=== PATIENT | female | born 1935 | race Caucasian/White ===

== ENCOUNTER 2016-10-08 10:00 | Emergency (ER) | payer OTHER ==
[2016-10-08 10:17] VITALS: BP 142/66; PULSE 85; RESP 18; TEMP 98; O2SAT 95
--- NOTE | 2016-10-08 10:25 | UCPHY ---
H & P Time Seen by Provider: 10/08/16 10:07 Patient Type: Established HPI/ROS: HPI Cough, chest congestion. 80-year-old female by private vehicle. This patient complains of a dry/ nonproductive cough with chest congestion and nasal congestion ongoing for 1 week now. She reports that she had these symptoms last year and was diagnosed as bronchitis and pneumonia. She reports this feels very similar. ROS: Constitutional: No fever, no chills. No weakness. Eyes: No discharge. No changes in vision. ENT: No sore throat. As above. Respiratory: As above. No shortness of breath. Cardiac: No chest pain, no palpitations. Gastrointestinal: No abdominal pain, no vomiting, no diarrhea. Genitourinary: No hematuria. No dysuria or increased frequency with urination. Musculoskeletal: No back pain. No neck pain. No myalgias or arthralgias. Skin: No rashes. Neurological: No headache. No focal weakness or altered sensation. Past medical history: Hypertrophic cardiomyopathy, mitral valve regurgitation, pneumonia, hyperlipidemia, sleep apnea, CPAP with oxygen at night. GI bleed while being on blood thinners after knee surgery. Social history: Here by herself. Nonsmoker. Physical Exam: General Appearance: Alert, no distress. This patient is responding to questions appropriately and in full sentences. This patient appears well- hydrated and well-nourished. Eyes: Pupils equal and round no pallor or injection. No lid edema, erythema or injection. ENT, Mouth: Mucous membranes are moist. The pharyngeal tissues are unremarkable. No edema or swelling. No asymmetry suggestive of abscess. No erythema or exudates. Respiratory: There are no retractions, lungs are clear to auscultation with good air movement bilaterally. Cardiovascular: Regular rate and rhythm. Holosystolic murmur. Gastrointestinal: Abdomen is soft and nontender, no masses, bowel sounds normal. No focal tenderness at McBurney's point. No Aquino sign. Neurological: Motor sensory function is grossly intact. Cranial nerves are normal. Gait is normal. Skin: Warm and dry, no rashes. Musculoskeletal: Neck is supple and nontender. Extremities are symmetrical. All joints range without pain or impingement. Psychiatric: No agitation. No depression. Database: Influenza-negative. EKG: Imaging: Chest x-ray PA and lateral; the cardiac mediastinal silhouette is unremarkable. No evidence of infiltrate or pneumothorax. Bronchitis. No other acute cardiopulmonary disease process noted. Interpreted by me. Procedures: Emergency department course: Patient sent for a chest x-ray from triage. Flu swab obtained. 10:45 a.m., patient re-evaluated. Awaiting flu swab result. Discussed results of x-ray with patient. Given her age and comorbidities all start the patient on azithromycin at urgent care. She was given 500 mg orally. 11:00 a.m., patient re-evaluated. Resting comfortably at this time. Results of influenza swab discussed with her. Her presentation is not consistent with classic influenza. She also had the flu vaccine earlier last year. I will treat her for bronchitis. She will receive a prescription for azithromycin as well as Tesyobany Whitneye. I discussed the importance of close follow-up. She feels comfortable going home. Return to Urgent Care precautions reviewed. All of her questions were answered. She was discharged in good condition. Differential Diagnosis: The differential diagnosis on this patient includes but is not limited to bronchitis, pneumonia, viral upper respiratory infection. This represents a partial list of diagnoses considered. These considerations are based on history , physical exam, past history, reassessment and diagnostic testing. Smoking Status: Never smoked Constitutional: Initial Vital Signs Temperature (C) 36.6 C 10/08/16 10:16 Heart Rate 85 10/08/16 10:16 Respiratory Rate 18 10/08/16 10:16 Blood Pressure 142/66 H 10/08/16 10:16 O2 Sat (%) 95 10/08/16 10:16 O2 Delivery Mode Room Air Allergies/Adverse Reactions: Sulfa (Sulfonamide Antibiotics) [Sulfa(Sulfonamide Antibiotics)] Allergy ( Intermediate, Verified 01/25/16 10:05) Rash Home Medications: Medication Instructions Recorded CALCIUM 01/25/16 CO Q-10 01/25/16 HYOSCYAMINE SULFATE [LEVSIN-SL] 0.125 mg SL Q4-6PRN PRN #20 01/25/16 tab.subl IRON 01/25/16 Metoprolol Tartrate 01/25/16 Multisenior Vitamin 01/25/16 Probiotic 01/25/16 Vitamin B12 01/25/16 Vitamin C 01/25/16 Vitamin D3 01/25/16 Zocor 01/25/16 Azithromycin [Zithromax] 250 mg PO DAILY #6 tab 10/08/16 Azithromycin [Zithromax] 250 mg PO DAILY #6 tab 10/08/16 Benzonatate [Tessalon Pearles] 100 mg PO TID #12 cap 10/08/16 Medical Decision Making - Data Points Laboratory Results: 10/08/16 10:35 Influenza Typ A,B (DFA) NEGATIVE FOR FLU (NEGATIVE) Medications Given: Discontinued Medications Azithromycin (Zithromax) 500 mg PO EDNOW ONE PRN Reason: Protocol Stop: 10/08/16 10:44 Last Admin: 10/08/16 10:57 Dose: 500 mg Departure - Departure Disposition: Home, Routine, Self-Care Clinical Impression: Bronchitis Condition: Good Instructions: Acute Bronchitis (ED) Additional Instructions: Read and follow provided instructions. Follow-up with your primary care physician in 1-2 days for re-evaluation without fail. Take medication as prescribed through entire course of treatment. Return to the emergency department for worsening cough, fever, difficulty breathing or other serious concerns. Referrals: Jyoti Aviles MD [Primary Care Provider] - As per Instructions Prescriptions: Benzonatate [Tessalon Pearles] 100 mg PO TID #12 cap Azithromycin [Zithromax] 250 mg PO DAILY #6 tab Azithromycin [Zithromax] 250 mg PO DAILY #6 tab - PQRS PQRS Measurement: 134: Depression screening and followup, PRIME MD-PHQ2 (12 years and older) Over the last 2 weeks, how often have you been bothered by any of the following problems? 1. Feeling down, depressed, or hopeless? 2. Little interest or pleasure in doing things? Answered no to both questions. 130: Documentation of medications. Reviewed all patient medications, doses, route and frequency. 226: Do you smoke? No. 47: 65 and older: Advanced care planning. Patient designates surrogate decision maker as family. 51: 18 years old and older with diagnosis of COPD, spirometry performance. NA 52: 18 years old and older with COPD and symptoms of COPD or FEV1<60% predicted prescribed a B Agonist. NA
--- NOTE | 2016-10-08 10:28 | DX ---
Chest, PA and Lateral History: Cough and congestion Comparison: 10/30/2014 Findings: There is chronic or recurrent perihilar bronchial wall thickening. Mildly prominent lung vo lumes are stable. Lungs are clear, without infiltrate or consolidation. Heart size is normal. There i s atherosclerotic calcification of the proximal brachiocephalic vessels. There is no adenopathy or ma ss lesion. There is no pleural effusion . A thoracic kyphosis and degenerative changes in the midthor acic spine are stable. There are no significant compression abnormalities.. Impression: No pneumonia. Suspect airways disease.
[2016-10-08] MEDS ORDERED: AZITHROMYCIN 250 MG TAB PO ONE (10:43)
== END 2016-10-08 13:00 | disposition home or self-care (01) ==
LOC: CED 10:00
DX: J40 Bronchitis, not specified as acute or chronic (principal); Z88.2 Allergy status to sulfonamides
CPT/HCPCS: 71020; G0463; 87400-PO; 99214-PO

== ENCOUNTER → 2017-09-03 | Outpatient (CLI) | payer OTHER | LOC: SBRMNEURO 23:07 | PROVIDERS: ATTEND Psychiatry & Neurology Sleep Medicine | DX: G47.33 Obstructive sleep apnea (adult) (pediatric) (principal) ==

== ENCOUNTER → 2017-12-07 | Outpatient (CLI) | payer OTHER | LOC: BMCLAB 13:34 | PROVIDERS: ATTEND Internal Medicine | DX: R91.8 Other nonspecific abnormal finding of lung field (principal) | CPT/HCPCS: 82607-90 ==

== ENCOUNTER 2018-03-24 06:03 | Inpatient (IN) | payer OTHER ==
[2018-03-24] MEDS ORDERED: HYDROmorphONE/DILAUDID 2 MG/ML INJ IVP ONE (06:17)
[2018-03-24] MEDS ORDERED: NS 1,000 ML IV ONE (06:17)
[2018-03-24] MEDS ORDERED: PANTOPRAZOLE SODIUM 40 MG VIAL IVP ONE (06:26)
--- NOTE | 2018-03-24 06:30 | EDPHY ---
H & P Stated Complaint: black mucous stool yesterday and this am, now low back pain- sees chiroprac Time Seen by Provider: 03/24/18 06:28 HPI/ROS: HPI CHIEF COMPLAINT: Black tarry stool shortness of breath, weakness HISTORY OF PRESENT ILLNESS: Very pleasant 82-year-old female, she presents to the emergency room feeling weak, and has had black tarry stool x3. Patient states yesterday she knows black tarry stool. She states she then had another episode yesterday and then 1 last night around 3:00 a.m.. She wait till 6:00 a.m. 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 She does have a history of AFib she is on Eliquis. Also on Plavix. She has a history of GI bleed mainly from the upper GI track with AVM. She denies any chest pain, her does complain of dyspnea on exertion shortness of breath and generalized weakness. Additionally reports some abdominal bloating abdominal pain. Mainly in her left lower quadrant. Past Medical History: AFib on Eliquis, Plavix, history of cardiomyopathy, IH S as, mitral valve regurg, hypertension, pulmonary hypertension, obstructive sleep apnea, history GI bleed. Past Surgical History: No recent surgery Social History: Denies drugs alcohol tobacco. Family History: Noncontributory ROS REVIEW OF SYSTEMS: A comprehensive 10 point review of systems is otherwise negative aside from elements mentioned in the history of present illness. Exam Constitutional elderly, obese, frail, triage nursing summary reviewed, vital signs reviewed, awake/alert. Eyes normal conjunctivae and sclera, EOMI, PERRLA. HENT normal inspection, atraumatic, moist mucus membranes, no epistaxis, neck supple/ no meningismus, no raccoon eyes. Respiratory clear to auscultation bilaterally, normal breath sounds, no respiratory distress, no wheezing. Cardiovascular rate normal, regular rhythm, no murmur, no edema, distal pulses normal. Gastrointestinal mild tender palpation left lower quadrant, no rebound, no guarding, normal bowel sounds, no distension, no pulsatile mass. Genitourinary no CVA tenderness. Musculoskeletal no midline vertebral tenderness, full range of motion, no calf swelling, no tenderness of extremities, no meningismus, good pulses, neurovascularly intact. Skin pink, warm, & dry, no rash, skin atraumatic. Neurologic awake, alert and oriented x 3, AAOx3, moves all 4 extremities equally, motor intact, sensory intact, CN II-XII intact, normal cerebellar, normal vision, normal speech. Psychiatric normal mood/affect. Heme/Lymph/Immune no lymphadenopathy. Differential Diagnosis: Includes but is not limited to in a particular order: Acute diverticulitis, diverticulosis, colitis, upper GI bleed, lower GI bleed, peptic ulcer disease Medical Decision Making: Patient here in the emergency room black tarry stools and abdominal pain will proceed with IV establishment 2 IVs, type and screen, check basic blood work CBC, check H&H, IV Protonix, IV Dilaudid for pain control IV Zofran for nausea, gentle IV fluids, CT scan abdomen pelvis with IV contrast to help delineate the left lower quadrant abdominal pain on exam. Re-evaluation: EKG interpretation by me on record in [facility] system. Impression time of EKG 6:46 a.m., sinus rhythm rate of 86 no acute ischemia no ST elevation no ST depression no significant T-wave abnormalities. LVH. Given the patient has black tarry stools patient be given IV Protonix. Patient need to be admitted to the hospitalist service for evaluation Her H&H are reviewed. Blood pressure stable She is not having any active melenic dark tarry stools at this time. Patient will be admitted to the medicine service. Spoke with the hospitalist service Dr. Rivera, agrees to admit this patient for dark black tarry stool GI bleed. At time of admission 7:00 a.m. The patient is hemodynamically stable no acute distress. Stable vital signs. Not actively bleeding. Patient pending CT scan abdomen pelvis with IV contrast for left lower quadrant abdominal pain. Patient admitted to the hospitalist service Gastroenterology was consulted at 7:[address] Barraza. Requested patient remains NPO for possible scope. Source: Patient - Personal History Current Tetanus/Diphtheria Vaccine: Yes Tetanus Vaccine Date: WITHIN 10 YRS - Medical/Surgical History Hx Asthma: No Hx Chronic Respiratory Disease: No Hx Diabetes: No Hx Cardiac Disease: Yes Hx Renal Disease: No Hx Cirrhosis: No Hx Alcoholism: No Hx HIV/AIDS: No Hx Splenectomy or Spleen Trauma: No Other PMH: HYPERTROPHIC CARDIAC MYOPATHY/VALVE REGURG, PNEUMONIA, HIGH CHOLESTROL. GI BLEED AFTER KNEE SURGERY ON BLOOD THINNERS, sleep apnea, wears CPAP w/oxygen at night, HTN, Ulcer, IBS, afib - Social History Smoking Status: Never smoked Constitutional: Initial Vital Signs Temperature (C) 36.5 C 03/24/18 06:11 Heart Rate 102 H 03/24/18 06:11 Respiratory Rate 20 03/24/18 06:11 Blood Pressure 118/80 03/24/18 06:11 O2 Sat (%) 96 03/24/18 06:11 O2 Delivery Mode Room Air O2 (L/minute) 2 Allergies/Adverse Reactions: Sulfa (Sulfonamide Antibiotics) [Sulfa(Sulfonamide Antibiotics)] Allergy ( Intermediate, Verified 03/24/18 06:08) Rash nickel Allergy (Verified 03/24/18 07:52) Home Medications: Medication Instructions Recorded Ascorbic Acid [Vitamin C 500 mg 500 mg PO DAILY 01/25/16 (*)] Calcium Carbonate [Calcium] 500 mg PO DAILY 01/25/16 Cholecalciferol Vit D3 [Vitamin D3 5,000 units PO DAILY 01/25/16 (*)] Cyanocobalamin [Vitamin B12 (*)] 1,000 mcg PO DAILY 01/25/16 Multivitamins [Multivitamin (*)] 1 each PO DAILY 01/25/16 Simvastatin [Zocor] 10 mg PO HS 01/25/16 Acetamn/Diphenhydramine 500/25 2 each PO HS 03/24/18 [Tylenol PM (*)] Apixaban [Eliquis] 5 mg PO BID 03/24/18 Dabigatran Etexilate Mesyl 150 mg PO BID 03/24/18 [Pradaxa 150 MG (*)] Herbals/Supplements -Info Only 1 each PO DAILY 03/24/18 Nebivolol HCl [Bystolic] 10 mg PO DAILY 03/24/18 Pantoprazole Sodium [Protonix 40mg 40 mg PO DAILY 03/24/18 (*)] Verapamil ER [Calan SR/ER 120MG 120 mg PO HS 03/24/18 (*)] Medical Decision Making - Data Points Laboratory Results: Laboratory Results 03/25/18 11:33 03/25/18 05:23 03/24/18 06:25 Patient ABO/Rh O POSITIVE Antibody Screen NEGATIVE Crossmatch IS Only See Detail Medications Given: Acetaminophen (Tylenol) 650 mg PO Q4HRS PRN PRN Reason: Pain, Mild/Fever, Can Take PO Stop: 09/20/18 07:40 Last Admin: 03/25/18 00:50 Dose: 650 mg Acetaminophen/Diphenhydramine HCl (Tylenol Pm) 2 each PO HS SRINATH Stop: 09/20/18 20:59 Last Admin: 03/25/18 21:20 Dose: 2 each Ascorbic Acid (Vitamin C) 500 mg PO DAILY SRINATH Stop: 09/21/18 08:59 Last Admin: 03/25/18 09:08 Dose: 500 mg Calcium Carbonate (Oyster Shell Calcium) 500 mg PO DAILY SRINATH Stop: 09/21/18 08:59 Last Admin: 03/25/18 09:08 Dose: 500 mg Cholecalciferol (Vitamin D) 5,000 units PO DAILY SRINATH Stop: 09/21/18 08:59 Last Admin: 03/25/18 09:09 Dose: 5,000 units Ceftriaxone Sodium/Dextrose (Rocephin 1 Gm (Premix)) 50 mls @ 100 mls/hr IV DAILY SRINATH PRN Reason: Protocol Stop: 04/24/18 13:29 Last Admin: 03/25/18 15:26 Dose: 50 mls Multivitamins (Tab-A-Pavan) 1 each PO DAILY SRINATH Stop: 09/21/18 08:59 Last Admin: 03/25/18 09:09 Dose: 1 each Nebivolol (Bystolic) 10 mg PO DAILY [facility] Stop: 09/21/18 13:14 Last Admin: 03/25/18 13:35 Dose: 10 mg Ondansetron HCl (Zofran) 4 mg IVP Q4HRS PRN PRN Reason: Nausea/Vomiting, Can't Take PO Stop: 09/20/18 13:07 Last Admin: 03/24/18 19:56 Dose: 4 mg Oxycodone HCl (Oxycodone Ir) 5 mg PO Q4HRS PRN PRN Reason: Pain, Severe Able to Take PO Stop: 04/04/18 13:18 Last Admin: 03/25/18 15:25 Dose: 5 mg Pantoprazole Sodium (Protonix) 40 mg PO DAILY SRINATH Stop: 09/20/18 11:59 Last Admin: 03/25/18 09:18 Dose: 40 mg Pravastatin Sodium (Pravachol) 20 mg PO HS [facility] Stop: 09/20/18 20:59 Last Admin: 03/25/18 21:15 Dose: 20 mg Verapamil HCl (Calan Sr) 120 mg PO HS [facility] Stop: 09/20/18 20:59 Last Admin: 03/25/18 21:13 Dose: Not Given Vitamin B Complex (Vitamin B12) 1,000 mcg PO DAILY SRINATH Stop: 09/21/18 08:59 Last Admin: 03/25/18 09:09 Dose: 1,000 mcg Discontinued Medications Hydromorphone HCl (Dilaudid) 0.5 mg IVP EDNOW ONE Stop: 03/24/18 06:18 Last Admin: 03/24/18 06:34 Dose: 0.5 mg Hydromorphone HCl (Dilaudid) 0.25 - 0.5 mg IVP Q3HRS PRN PRN Reason: Pain, Severe Unable to Take PO Stop: 04/03/18 07:40 Last Admin: 03/25/18 10:22 Dose: 0.5 mg Sodium Chloride (Ns) 1,000 mls @ 0 mls/hr IV EDNOW ONE; Wide Open PRN Reason: Protocol Stop: 03/24/18 06:18 Last Admin: 03/24/18 06:35 Dose: 1,000 mls Sodium Chloride (Ns) 500 mls @ 0 mls/hr IV ONCE ONE PRN Reason: Wide Open Stop: 03/25/18 16:08 Last Admin: 03/25/18 16:52 Dose: 500 mls Pantoprazole Sodium (Protonix) 40 mg IVP EDNOW ONE Stop: 03/24/18 06:27 Last Admin: 03/24/18 06:43 Dose: 40 mg Phytonadione (Vitamin K) 10 mg PO ONCE ONE Stop: 03/24/18 09:54 Last Admin: 03/24/18 10:17 Dose: 10 mg Departure - Departure Disposition: [facility] Inpatient Acute Clinical Impression: GI bleed Qualifiers: GI bleed type/associated pathology: melena Qualified Code(s): K92.1 - Melena Condition: Serious
[2018-03-24 06:40] LABS: PLATELET COUNT 241 10^3/uL (150-400)
[2018-03-24] MEDS ORDERED: IOPAMIDOL (ISOVUE-300) 100 ML BTL ONE (06:42)
[2018-03-24 06:48] LABS: INR 1.8 (0.83-1.16)
--- NOTE | 2018-03-24 06:49 | CPEKG ---
Heart Rate: 86 RR Interval: 698 P-R Interval: 180 QRSD Interval: 88 QT Interval: 380 QTC Interval: 455 P Bassett: 44 QRS Bassett: 11 T Wave Bassett: 27 EKG Severity - BORDERLINE ECG - EKG Impression: SINUS RHYTHM EKG Impression: LVH BY VOLTAGE Electronically Signed By: Roverto Villarreal 24-Mar-2018 07:19:42
[2018-03-24] MEDS ORDERED: ONDANSETRON 4 MG/2 ML VIAL IVP PRN ×2 (07:41→13:08)
[2018-03-24] MEDS ORDERED: NS 1,000 ML IV SCH (07:45)
[2018-03-24] MEDS ORDERED: fentaNYL 100 MCG/2 ML INJ ONE (09:22)
[2018-03-24] MEDS ORDERED: MIDAZOLAM 2 MG/2 ML VIAL ONE (09:22)
[2018-03-24] MEDS ORDERED: EPINEPHrine 1 MG/ML INJ ONE (09:22)
--- NOTE | 2018-03-24 09:32 | PDPROPOC ---
Sedation Plan of Care Sedation Plan of Care: vital signs stable, mental status noted, patient educated of risks, benefits, alternatives, patient can tolerate sedation ASA Classification: ASA 2 Planned drugs: fentanyl, midazolam Mallampati Score: Class 1 Mallampati Reference Image: Patient passed 3-3-2 rule?: Yes
[2018-03-24] MEDS ORDERED: PHYTONADIONE 2.5 MG/2.5 ML ORAL UDL PO ONE (09:53)
--- NOTE | 2018-03-24 10:21 | GIREPORT ---
[facility] Surgical Services - Endoscopy Department Patient Name: Paige Ayala Procedure Date: 03/24/2018 9:06 AM Patient Type: Inpatient Attending MD/ ER Physician: Juan Barrzaa MD Procedure: Upper GI endoscopy Indications: Note dictated, consult appreciated. Melena. Of note, episodes of G.I. bleeding appear to be a somewhat chronic problem for her, f/b Dr. Yunior henning, including a small bowel pill camera endoscopy about ten years ago (as p er ). Providers: Juan Barraza MD, FACG Referring MD: Jyoti Aviles MD; Alli De Los Santos MD; [facility] Hospitalist service; [facility] ([place], [place]) Medicines: Fentanyl 100 micrograms IV, Midazolam 3.5 mg IV Complications: No immediate complications. Description of Procedure: After obtaining informed consent, the endoscope was passed under direct vision. Throughout the procedure, the patient's blood pressure, pulse, and oxygen saturations were monitored continuously. The Endoscope was intro duced through the mouth, and advanced to the second part of duodenum. Findings: Traces of fresh blood present in the stomach and duodenum; however, no further active bleeding. The esophagus was normal. The stomach was normal. The examined duodenum was normal, except for a small lipoma in the seco nd portion. Full length of endoscope used, to look at as much jejunum as possible. Normal. Rectal exam with melena. Estimated Blood Loss: Estimated blood loss: none. Post Op Diagnosis: - recent UGI bleed, but no source found on today's exam. No further ble eding. Overall, suspect AVM(s) is still most likely, most likely further down in the small bowel. Suspect exacerbated by too much anticoagulation. Recommendation: - clears - buffcap I.V. - change to outpt. PPI - serial H/H, trf prn - Vit K x 1 - suspect both eliquis and pradaxa is too much for this pt. Recommend stopping at least one as an outpt. (if not both, if possible). As per hospitalist, PCP, solar energy advisor. If Hct stable in A.M., can d/c home, on iron replacement therapy. As an outpt., besides the above, recommend a small bowel pill camera endoscop y. This should be done by Dr. Alli De Los Santos, who has a long established relationship with the pt., including copious old records regarding past G.I. bleeding. F/u should be with him and his PCP. Thank you for allowing me to help in the management of this patient. Attending Participation: I personally performed the entire procedure. Christi Martinez MD Juan Barraza MD 03/24/2018 10:20:38 AM This report has been signed electronicallyPeter MD Christi Number of Addenda: 0 Note Initiated On: 03/24/2018 9:06 AM [email or web address]
--- NOTE | 2018-03-24 10:44 | GCON ---
[f rep st] CONSULTATION GI INPATIENT CONSULTATION. DATE OF CONSULTATION: 03/24/2018 I was kindly requested to see Paige by Dr. Roverto Villarreal in consultation for a chief complaint of melena. She is an 82-year-old white female who yesterday began to have a black tarry stool, 3 in total. She denies hematemesis. With the above, she has had some weakness and shortness of breath. She has apparent past history of gastrointestinal bleed with an upper endoscopy by Dr. Alli De Los Santos showing an AVM in the upper GI tract. She has a history of atrial fibrillation, and is on both Eliquis and Pradaxa. She denies aspirin, nonsteroidals. She states she had an unremarkable colonoscopy by Dr. De Los Santos about 4 years ago. PAST MEDICAL HISTORY: 1. As above. 2. Cardiomyopathy. 3. Mitral valve regurgitation. 4. Hypertension. 5. Pulmonary hypertension. 6. Sleep apnea. 7. Otherwise, noncontributory. OUTPATIENT MEDICATIONS: Include pantoprazole 40 mg daily, Eliquis, Pradaxa, Verapamil, Zocor, B12, multivitamin, iron, Bystolic. INPATIENT MEDICATIONS: Include IV fluids, pantoprazole 40 mg IV q.6. ALLERGIES: Include sulfur. SOCIAL HISTORY: She is . FAMILY HISTORY: Negative for similar bleeding. REVIEW OF SYSTEMS: Positive pertinent review of systems as per my HPI. Otherwise, complete review of systems is negative. PHYSICAL EXAM: CONSTITUTIONAL: Nontoxic-appearing, pleasant woman. VITAL SIGNS: Stable. SKIN: Warm, dry. EYES: Pupils equal, round, reactive to light and accommodation. EARS, NOSE, MOUTH, THROAT: Oropharynx without masses , moist mucosa. CARDIOVASCULAR: Normal S2, normal PMI. RESPIRATORY: Lungs clear to auscultation and percussion anteriorly. GASTROINTESTINAL: Abdomen is profuse, nontender. NEUROLOGIC: Grossly nonfocal, cranial nerves grossly intact. PSYCHIATRIC: Orientation, insight, appropriate. MUSCULOSKELETAL: Strength grossly normal throughout, normal station. LABORATORIES: Include hematocrit 29.9%. In November, it was 42%. Normal platelet count. Prothrombin time 21 with an INR of 1.8. PTT 73. BUN 30. Normal CMP. Past celiac serologies negative. ASSESSMENT: Melena. Suspect recurrent upper gastrointestinal bleed, exacerbated by her anticoagulants and antiplatelet drugs. Certainly, a repeat arteriovenous malformation bleed is possible. Other possibilities are less likely, such as peptic ulcer disease, gastritis, etc. PLAN: 1. Urgent upper endoscopy. Certainly, with her age, cardiomyopathy, mitral valve regurgitation, hypertension, pulmonary hypertension, obstructive sleep apnea, AFib etc., she is at increased risk for this procedure. However, suspected benefits outweigh the risks, and suspect she would do well. 2. Further management pending the above. Thank you for allowing me to help in the care of this patient. Copy requested to: Cardiology Department [facility] /[id number]
[2018-03-24] MEDS ORDERED: PANTOPRAZOLE SODIUM 40 MG VIAL IVP SCH (12:30)
[2018-03-24] MEDS ORDERED: ACETAMINOPHEN 325 MG TAB PO PRN (13:08)
[2018-03-24] MEDS: PANTOPRAZOLE SODIUM 40 MG TAB PO SCH (13:32)
--- NOTE | 2018-03-24 14:01 | GHP ---
[f rep st] HISTORY AND PHYSICAL DATE OF ADMISSION: 03/24/2018 SUBJECTIVE: Ms Ayala is a pleasant 82-year-old female with a history anticoagulation and Hocm,who is on anticoagulation, who presents with about a 24-hour history of black stool combined with lightheade dness. She has had some nausea, but no vomiting. No bright red blood per rectum. She was recently admitted to [facility], about 6 weeks ago with atrial fibrillation. It arthur nds like there was discussion of an implantable device versus ongoing blood thinners and ultimately i t appears that she was discharged on Pradaxa and Eliquis. She acknowledges taking both of these, alt anderson there are some inconsistencies in her story. She does not take an antiplatelet. She does not have liver disease. REVIEW OF SYSTEMS: Complete 10-point review of systems conducted, negative except as noted in the HP I. PAST MEDICAL HISTORY: 1. Hocm that has been stable over the course of years, followed at [facility]. 2. Obstructive sleep apnea on CPAP. 3. Arthritis. 4. Hypertension. 5. Atrial fibrillation. 6. Mitral regurgitation. 7. Pulmonary hypertension. SOCIAL HISTORY: She lives in [place]. Former smoker. No alcohol. FAMILY HISTORY: Ischemic heart disease. ALLERGIES: Sulfa and nickel. HOME MEDICATIONS: Eliquis, Pradaxa, again as in the HPI. Nebivolol, verapamil, Tylenol p.m., ascorb ic acid, calcium, vitamin D3, cyanocobalamin, pantoprazole, multivitamin, simvastatin. PHYSICAL EXAM: VITAL SIGNS: Blood pressure 118/90, pulse 102, breathing 20 times a minute, 96% on ro om air, temp 36.5. GENERAL: No acute distress, lying flat. HEENT: Sclerae anicteric. Oropharynx clear. Mucous membranes moist. NECK: Supple without lymphadenopathy or JVD. LUNGS: Clear to ausc ultation bilaterally. HEART: S1, S2. ABDOMEN: Soft, nontender, nondistended. LOWER EXTREMITIES: Without edema. Calves nontender. SKIN: Without rash. NEUROLOGIC: Nonfocal. LABS: Presenting CBC: White count 10.9, hematocrit 29.9, platelets 241. Repeat a couple hours later at 11 o'clock this morning shows a hemoglobin of 8.7, hematocrit of 26.8, her baseline is around 10. INR is 1.8. Venous lactate is elevated at 2.3. Sodium 137, potassium 4.4, chloride 108, bicarb 19 , BUN 30, creatinine 0.8. LFTs normal. Glucose 121. Fecal occult positive. Abdominal CT shows no source of bleeding, mild diverticuloses. I have reviewed and interpreted the anton olivarezs myself. EKG interpreted by me shows sinus at 86 with normal axis and intervals. No ST or T-wave changes. I discussed case Dr. Juan Barraza. ASSESSMENT/PLAN: An 82-year-old female with upper gastrointestinal bleed. 1. Upper gastrointestinal bleed. This patient underwent endoscopy,. That showed old blood, but no s ource of bleeding. 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 She had a previous upper gas trointestinal bleed that was suspected to be arteriovenous malformations as well and perhaps confirme d by endoscopy. Notable is the dual direct thrombin inhibitors. I will hold both of these for the t roberto being. 2. Dual anticoagulation. This appears to be a medication error. Would discharge on 1 direct thromb in inhibitor. 3. Atrial fibrillation. Continue her verapamil. Hold her beta angie given the acute gastrointest inal bleed and we can resume anticoagulation in the coming days if she demonstrates stability. 4. Elevated BUN consistent with upper gastrointestinal bleed and digested blood. 5. Elevated lactate. The patient is not hypotensive. I will repeat a lactate for completeness sake . DISPOSITION: Admitted to observation status. We will follow. /[id number]/MODL
[2018-03-24] MEDS: ACETAMINOPHEN 325 MG TAB PO PRN (15:38)
[2018-03-24] MEDS: VERAPAMIL ER 120 MG TAB PO SCH (19:54)
[2018-03-24] MEDS: PRAVASTATIN SODIUM 20 MG TAB PO SCH (19:54)
[2018-03-24] MEDS: ACETAMN/DIPHENHYDRAMINE 500/25MG TAB PO SCH (19:55)
[2018-03-25] MEDS: ACETAMINOPHEN 325 MG TAB PO PRN (00:50)
[2018-03-25 05:47] LABS: INR 1.23 (0.83-1.16); PLATELET COUNT 174 10^3/uL (150-400); PROTIME(PATIENT) 15.7 SEC (12.0-15.0)
[2018-03-25] MEDS: HYDROmorphONE/DILAUDID 1 MG/ML INJ IVP PRN ×2 (05:50→10:22)
[2018-03-25] MEDS ORDERED: PANTOPRAZOLE SODIUM 40 MG TAB PO SCH (09:00)
[2018-03-25] MEDS ORDERED: Herbals/Supplements -Info Only PO SCH (09:00)
[2018-03-25] MEDS: CALCIUM CARBONATE 500 MG TAB PO SCH (09:08)
[2018-03-25] MEDS: ASCORBIC ACID 500 MG TAB PO SCH (09:08)
[2018-03-25] MEDS: MULTIVITAMINS 1 EACH TAB PO SCH (09:09)
[2018-03-25] MEDS: CHOLECALCIFEROL VIT D3 1,000 UNITS TAB PO SCH (09:09)
[2018-03-25] MEDS: CYANO/VITAMIN B12 1000 MCG TAB PO SCH (09:09)
[2018-03-25] MEDS: PANTOPRAZOLE SODIUM 40 MG TAB PO SCH (09:18)
--- NOTE | 2018-03-25 09:25 | SOAPPROG ---
SOAP Progress Note Assessment/Plan: Assessment/Plan: Hcts 23% > 21% > 25.7% > 30.5%. Received 2 u prbc. Overall, suspect no further active bleeding, but: - will get a few H/Hs q4, to make sure stable. - if so, ok from a G.I. standpoint to d/c home. Please see yesterday's EGD for recommendations. Of note, outpt. small bowel pill camera endoscopy should be done by her outpt. G.I. doc, Dr. De Los Santos. Will sign off; thanks! 03/25/18 21:52 Subjective: cc: GI bleed Dizzy. Else, without further e/o bleeding. No rigors, chills, sweats. Objective: Vital Signs Temp Pulse Resp BP Pulse Ox 36.6 C 78 12 114/49 L 98 03/25/18 07:32 03/25/18 07:32 03/25/18 07:32 03/25/18 07:32 03/25/18 07:32 Laboratory Results 03/25/18 08:20 03/25/18 05:23 03/24/18 03/25/18 03/26/18 05:59 05:59 05:59 Intake Total 2212 Output Total 600 Balance 1612 PT 15.7 SEC (12.0-15.0) H 03/25/18 05:23 INR 1.23 (0.83-1.16) H 03/25/18 05:23 Physical Exam - Physical Exam General Appearance: WD/WN, alert, no apparent distress EENT: PERRL/EOMI, normal ENT inspection, pharynx normal, TMs normal Neck: non-tender, full range of motion, supple, normal inspection Respiratory: chest non-tender, lungs clear, normal breath sounds Cardiac/Chest: normal peripheral pulses, regular rate, rhythm Peripheral Pulses: 2+: carotid (R), carotid (L), femoral (R), femoral (L), dorsalis-pedis (R), dorsalis-pedis (L) Abdomen: normal bowel sounds, non-tender, soft Pelvic Exam: deferred Rectal: deferred Back: Normal inspection Skin: normal color, warm/dry Lymphatic: no adenopathy Extremities: normal range of motion, non-tender, normal inspection, normal capillary refill Neuro/Psych: no motor/sensory deficits, alert, normal mood/affect, oriented x 3 ICD10 Worksheet Patient Problems: Problems Problem Status Onset GI bleed Acute Melena Acute
--- NOTE | 2018-03-25 11:25 | ASMTCMCOM ---
CM Note CM Note Notes: Chart reviewed. 82 year old female admitted via ED with c/o tarry stool . known afib nd on 2 anticoagulants. No active bleeding per endoscopic procedure but known AVM . Following serial labs. Likely to dc home without needs if stable. CM available should other needs arise. Plan: Home without services. Date Signed: 03/25/2018 11:24 AM Electronically Signed By:Ashli Bettencourt RN
[2018-03-25] MEDS ORDERED: traMADol 50 MG TAB PO PRN (13:19)
[2018-03-25] MEDS: NEBIVOLOL HCL 5 MG TAB PO SCH (13:35)
[2018-03-25] MEDS: oxyCODONE IR 5 MG TAB PO PRN (15:25)
[2018-03-25] MEDS ORDERED: NS 500 ML IV ONE (16:07)
--- NOTE | 2018-03-25 16:21 | HOSPPROG ---
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 -continue follow HH, but appear to have stabilized -SB capsule endoscopy as outpatient * Hypotension due to hypovolemia -gentle IVF - has tendency to fluid retention * ABLA - stable * HOCM * AFib -DC Pradaxa and continue Eliquis alone -needs to restart Norpace * UTI -IV ceftriaxone pending culture * LLQ/Left back pain - CT abd/pelvis negative -suspect musculoskeletal -consider MRI L spine if persists * COLIN - CPAP * Obesity BMI 39 Subjective: Dizzy with standing, SBP 86 Objective: Vital Signs Temp Pulse Resp BP Pulse Ox 36.9 C 92 12 86/46 L 94 03/25/18 15:29 03/25/18 15:29 03/25/18 15:29 03/25/18 15:29 03/25/18 15:29 Laboratory Results 03/25/18 11:33 03/25/18 05:23 03/24/18 03/25/18 03/26/18 05:59 05:59 05:59 Intake Total 2212 Output Total 600 Balance 1612 PT 15.7 SEC (12.0-15.0) H 03/25/18 05:23 INR 1.23 (0.83-1.16) H 03/25/18 05:23 EGD report reviewed - negative scope, suspect SB AVM CT abd/pelvis - unremarkable - Physical Exam Constitutional: no apparent distress, appears nourished, not in pain Cardiovascular: regular rate and rhythym, no murmur, rub, or gallop Respiratory: no respiratory distress, no rales or rhonchi, clear to auscultation Gastrointestinal: normoactive bowel sounds, soft, non-tender abdomen, no palpable masses Skin: no rashes or abrasions, no fluctuance, no induration Neurologic: AAOx3, sensation intact bilaterally Psychiatric: interacting appropriately, not anxious, not encephalopathic, thought process linear ICD10 Worksheet Patient Problems: Problems Problem Status Onset GI bleed Acute Melena Acute
[2018-03-25] MEDS: ACETAMN/DIPHENHYDRAMINE 500/25MG TAB PO SCH ×2 (21:13→21:20)
[2018-03-25] MEDS: VERAPAMIL ER 120 MG TAB PO SCH (21:13)
[2018-03-25] MEDS: PRAVASTATIN SODIUM 20 MG TAB PO SCH (21:15)
[2018-03-26] MEDS: ACETAMINOPHEN 325 MG TAB PO PRN (06:33)
[2018-03-26] MEDS: oxyCODONE IR 5 MG TAB PO PRN ×2 (08:37→14:25)
[2018-03-26] MEDS: NEBIVOLOL HCL 5 MG TAB PO SCH (08:38)
[2018-03-26] MEDS: MULTIVITAMINS 1 EACH TAB PO SCH (08:39)
[2018-03-26] MEDS: PANTOPRAZOLE SODIUM 40 MG TAB PO SCH (08:39)
[2018-03-26] MEDS: CYANO/VITAMIN B12 1000 MCG TAB PO SCH (08:40)
[2018-03-26] MEDS: CHOLECALCIFEROL VIT D3 1,000 UNITS TAB PO SCH (08:40)
[2018-03-26] MEDS: CALCIUM CARBONATE 500 MG TAB PO SCH (08:40)
[2018-03-26] MEDS: ASCORBIC ACID 500 MG TAB PO SCH (08:40)
--- NOTE | 2018-03-26 11:29 | ASMTCMCOM ---
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 PT eval recommending home care. Referrals made to home care agencies. CM to follow. D/C Plan: Anticipate home with health care. Date Signed: 03/26/2018 11:28 AM Electronically Signed By:Deedee Guaman
[2018-03-26] MEDS: TAMSULOSIN HCL 0.4 MG CAP PO SCH (11:52)
--- NOTE | 2018-03-26 13:14 | PDMN ---
Medical Necessity Medical necessity: Change to IP, as of 03/25/18, per MD & MCG M-182; los >2 mn for ongoing management of GI bleed w/hypotension, as well as UTI & back pain; requiring further monitoring, follow-up labs, IVFs, IV abx & pain management; comorbid advanced age, HOCM, AFIB on AC, HTN
--- NOTE | 2018-03-26 14:48 | ASMTCMCOM ---
CM Note CM Note Notes: Met with patient to visit with her about HHC and review the benefits of helping to transition to home. She is agreeable to HHC at this point. Call placed to Anette at [facility] to alert her that patient will need services upon discharge to home. CM to follow. Plan: Home with [facility] Date Signed: 03/26/2018 02:47 PM Electronically Signed By:Ashli Bettencourt RN
[2018-03-26] MEDS ORDERED: CYCLOBENZAPRINE 10 MG TAB PO PRN (14:59)
--- NOTE | 2018-03-26 17:19 | HOSPPROG ---
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 -continue follow , but appear to have stabilized -SB capsule endoscopy as outpatient * Hypotension due to hypovolemia -gentle IVF - has tendency to fluid retention * ABLA - stable * HOCM * AFib -DC Eliquis - restart Pradaxa when GI issues resolved -restart Norpace as outpatient -these meds were reviewed with facility examiner at - at discharge to help patient and decrease med errors * Pyelonephritis -IV ceftriaxone pending culture * COLIN - CPAP * Obesity BMI 39 Subjective: Ongoing severe left flank pain, uncontrolled Objective: Vital Signs Temp Pulse Resp BP Pulse Ox 36.8 C 90 20 116/63 88 L 03/26/18 16:00 03/26/18 16:00 03/26/18 16:00 03/26/18 16:00 03/26/18 16:00 Laboratory Results 03/26/18 05:07 03/26/18 05:07 03/25/18 03/26/18 03/27/18 05:59 05:59 05:59 Intake Total 903 Output Total 900 1600 Balance 3 -1600 PT 15.7 SEC (12.0-15.0) H 03/25/18 05:23 INR 1.23 (0.83-1.16) H 03/25/18 05:23 ABD xray - no obstruction CXR viewed, my personal interpretation is - negative - Physical Exam Constitutional: no apparent distress, appears nourished, not in pain Cardiovascular: regular rate and rhythym, no murmur, rub, or gallop Respiratory: no respiratory distress, no rales or rhonchi, clear to auscultation Gastrointestinal: normoactive bowel sounds, soft, non-tender abdomen, no palpable masses Skin: no rashes or abrasions, no fluctuance, no induration Neurologic: AAOx3, sensation intact bilaterally Psychiatric: interacting appropriately, not anxious, not encephalopathic, thought process linear ICD10 Worksheet Patient Problems: Problems Problem Status Onset GI bleed Acute Melena Acute
[2018-03-26] MEDS: ACETAMN/DIPHENHYDRAMINE 500/25MG TAB PO SCH (20:04)
[2018-03-26] MEDS: VERAPAMIL ER 120 MG TAB PO SCH (20:04)
[2018-03-26] MEDS: PRAVASTATIN SODIUM 20 MG TAB PO SCH (20:04)
[2018-03-27 05:54] LABS: PLATELET COUNT 189 10^3/uL (150-400)
[2018-03-27] MEDS: NEBIVOLOL HCL 5 MG TAB PO SCH (10:17)
[2018-03-27] MEDS: TAMSULOSIN HCL 0.4 MG CAP PO SCH (10:18)
[2018-03-27] MEDS: ASCORBIC ACID 500 MG TAB PO SCH (10:18)
[2018-03-27] MEDS: MULTIVITAMINS 1 EACH TAB PO SCH (10:18)
[2018-03-27] MEDS: CALCIUM CARBONATE 500 MG TAB PO SCH (10:18)
[2018-03-27] MEDS: CHOLECALCIFEROL VIT D3 1,000 UNITS TAB PO SCH (10:19)
[2018-03-27] MEDS: PANTOPRAZOLE SODIUM 40 MG TAB PO SCH (10:19)
[2018-03-27] MEDS: CYANO/VITAMIN B12 1000 MCG TAB PO SCH (10:19)
[2018-03-27 10:23] VITALS: BP 128/79
--- NOTE | 2018-03-27 11:28 | PDIAF ---
- Diagnosis Diagnosis: gi bleed - Medication Management Discharge Medications: Medications to Continue on Transfer Ascorbic Acid [Vitamin C 500 mg (*)] 500 mg PO DAILY 01/25/16 [Last Taken ] Calcium Carbonate [Calcium] 500 mg PO DAILY 01/25/16 [Last Taken 03/23/18] Cholecalciferol Vit D3 [Vitamin D3 (*)] 5,000 units PO DAILY 01/25/16 [Last Taken 03/23/18] Cyanocobalamin [Vitamin B12 (*)] 1,000 mcg PO DAILY 01/25/16 [Last Taken ] Multivitamins [Multivitamin (*)] 1 each PO DAILY 01/25/16 [Last Taken 03/23/18] Simvastatin [Zocor] 10 mg PO HS 01/25/16 [Last Taken 03/23/18] Acetamn/Diphenhydramine 500/25 [Tylenol PM (*)] 2 each PO HS 03/24/18 [Last Taken 03/23/18] Dabigatran Etexilate Mesyl [Pradaxa 150 MG (*)] 150 mg PO BID 03/24/18 [Last Taken 03/23/18 21:00] Herbals/Supplements -Info Only 1 each PO DAILY 03/24/18 [Last Taken Unknown] Nebivolol HCl [Bystolic] 10 mg PO DAILY 03/24/18 [Last Taken 03/23/18] Pantoprazole Sodium [Protonix 40mg (*)] 40 mg PO DAILY 03/24/18 [Last Taken ] Verapamil ER [Calan SR/ER 120MG (*)] 120 mg PO HS 03/24/18 [Last Taken 03/23/18 ] Cefuroxime Axetil [Ceftin] 250 mg PO BID #20 tab 03/27/18 [Last Taken Unknown] Discharge Medications: Refer to the Discharge Home Medication list for PRN reason. - Orders Services needed: Home Care, Registered Nurse, Certified [employer], Physical Therapy, Occupational Therapy Home Care Face to Face: I certify that this patient was under my care and that I had the required [id number] encounter meeting the encounter requirements on the discharge day. My findings support the fact that the patient is homebound as defined in Home Care Face to Face Continued: CMS Chapter 7 Medicare Benefits Manual 30.1.1 , The condition of the patient is such that there exists a normal inability to leave home and consequently, leaving home would require a considerable and taxing effort. - Follow Up Care Current Providers and Referrals: Jyoti Aviles MD [Primary Care Provider] - As per Instructions
--- NOTE | 2018-03-27 11:35 | ASMTLACE ---
LACE Length of stay for Answers: 2 days current admission Acuity / Level of Answers: Yes Care: Did the patient have an inpatient admission? Comorbidities - select Answers: Other Notes: HTN; AFib all that apply # of Emergency department Answers: 1-2 visits in the last 6 months Score: 7 Date Signed: 03/27/2018 11:34 AM Electronically Signed By:Cherry Bates RN
--- NOTE | 2018-03-27 11:41 | ASMTDCNOTE ---
Case Management Discharge Discharge Order Complete? Answers: Yes Patient to Obtain Answers: via Family Medications Transportation Arranged Answers: Family/Friends Faxed Final Orders Answers: Yes Agency/Facility Transfer Answers: Yes Report Printed & Faxed to Receiving Agency Family Notified Answers: Yes Discharge Comments Notes: D/w MD, final orders faxed. Anette at [facility] notified, d/w pt's , no other concerns. Date Signed: 03/27/2018 11:41 AM Electronically Signed By:Cherry Bates RN
--- NOTE | 2018-03-27 14:34 | GDS ---
[f rep st] DISCHARGE SUMMARY DISCHARGE DIAGNOSES: 1. Probable lower gastrointestinal bleed. 2. Anemia secondary to acute blood loss. 3. Atrial fibrillation. 4. Hypotrophic obstructive cardiomyopathy. 5. Pyelonephritis. 6. Obstructive sleep apnea. HISTORY: This is an 82-year-old female with a history of hypertrophic obstructive cardiomyopathy who was admitted to [facility] about 6 weeks ago and discharged with a diagnosis of atrial fibr illation. Appears that she was discharged on Pradaxa and on Eliquis. She presented with 24 hours of melena. HOSPITAL COURSE: Patient did require 2 units of packed red blood cell transfusion. She underwent EG D which did not reveal any causes of bleeding. It was thought that small bowel AVM is probably the m ore likely cause. Melena had stopped. Hemoglobin has remained stable. Patient also is complaining of back pain for actually a couple months. The UA was positive, and she was treated with antibiotics. Her back pain is improving. It was thought that some mild pyelonephri tis may be causing some of that back pain. Patient will restart her Pradaxa tonight. She will follow up with [facility] this week. DISPOSITION: Home. DISCHARGE MEDICATIONS: She is to resume all medicines except Eliquis. She is to continue Pradaxa. In addition, she will be given Ceftin 250 mg twice daily for 10 more days. FOLLOWUP INSTRUCTIONS: Patient instructed to follow up with primary care this week. She has a good relationship with the staff at [facility], and they will inform them on Thursday that she wa s hospitalized. TIME SPENT: Greater than 30 minutes was spent on discharge. /[id number]/MODL
--- NOTE | 2018-03-27 15:43 | ASDISCHSUM ---
Discharge Information Plan Status:Home with Home Health Medically Cleared to Leave: Discharge Date:03/27/2018 12:56 PM CM D/C Disposition:Home Health Service ADT D/C Disposition:[id number] Projected Discharge Date:03/27/2018 11:00 AM Transportation at D/C:Family Discharge Delay Reason: Follow-Up Date:03/27/2018 11:00 AM Discharge Slot: Final Diagnosis: Placement Information Referral Type:*Home Health Care Services Referral ID:[id number] Provider Name:[facility] (formerly [facility]) Address 1:[address] [address] Address 2: City:[place] Selection Factors: State:[place] Patient Contact Information Contact Name:KARINA Relationship: Address:[address] [place] City:[place] Alternate Phone: State/Zip Code:[place] [address] Email: Financial Information Financial Class:Medicare Primary Plan Desc:MEDICARE INPATIENT Primary Plan Number:[id number] Secondary Plan Desc:STANDARD LIFE AND ACCIDENT Secondary Plan Number:[id number] Assessment Information LACE LACE Length of stay for Answers: 2 days current admission Acuity / Level of Answers: Yes Care: Did the patient have an inpatient admission? Comorbidities - select Answers: Other Notes: HTN; AFib all that apply # of Emergency department Answers: 1-2 visits in the last 6 months Score: 7 Date Signed: 03/27/2018 11:34 AM Electronically Signed By:Cherry Bates RN [facility] CM Progress Note CM Note CM Note Notes: Chart reviewed. 82 year old female admitted via ED with c/o tarry stool . known afib nd on 2 anticoagulants. No active bleeding per endoscopic procedure but known AVM . Following serial labs. Likely to dc home without needs if stable. CM available should other needs arise. Plan: Home without services. 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 PT eval recommending home care. Referrals made to home care agencies. CM to follow. D/C Plan: Anticipate home with health care. Date Signed: 03/26/2018 11:28 AM Electronically Signed By:Deedee Guaman [facility] CM Progress Note CM Note CM Note Notes: Met with patient to visit with her about [facility] and review the benefits of helping to transition to home. She is agreeable to [facility] at this point. Call placed to Anette at [facility] to alert her that patient will need services upon discharge to home. CM to follow. Plan: Home with [facility] Date Signed: 03/26/2018 02:47 PM Electronically Signed By:Ashli Bettencourt RN Case Management Discharge Plan Note Case Management Discharge Discharge Order Complete? Answers: Yes Patient to Obtain Answers: via Family Medications Transportation Arranged Answers: Family/Friends Faxed Final Orders Answers: Yes Agency/Facility Transfer Answers: Yes Report Printed & Faxed to Receiving Agency Family Notified Answers: Yes Discharge Comments Notes: D/w , final orders faxed. Anette [facility] notified, d/w pt's , no other concerns. Date Signed: 03/27/2018 11:41 AM Electronically Signed By:Cherry Bates RN Intervention Information Intervention Type:*ABIGAIL-Signed Date of Service:03/24/2018 02:20 PM Patient Type:Observation Staff Member:Anna Sarmiento Hours: Discipline: Severity: Comment:
== END 2018-03-27 12:56 | disposition home health service (06) | DRG 378 ==
LOC: F3E 11:12 → OBSVTOIN 03-25 13:18
PROVIDERS: ADMIT Family Medicine; ATTEND Internal Medicine
PROC: 0DJ08ZZ Inspection of Upper Intestinal Tract, Via Natural or Artificial Opening Endoscopic (ICD-10-PCS; principal; 2018-03-25)
PROC: 30233N1 Transfusion of Nonautologous Red Blood Cells into Peripheral Vein, Percutaneous Approach (ICD-10-PCS; principal; 2018-03-25)
DX: K92.2 Gastrointestinal hemorrhage, unspecified (principal); D62 Acute posthemorrhagic anemia; N12 Tubulo-interstitial nephritis, not specified as acute or chronic; I42.1 Obstructive hypertrophic cardiomyopathy; I34.0 Nonrheumatic mitral (valve) insufficiency; I48.91 Unspecified atrial fibrillation; I10 Essential (primary) hypertension; G47.33 Obstructive sleep apnea (adult) (pediatric); E78.00 Pure hypercholesterolemia, unspecified; Z87.891 Personal history of nicotine dependence; E66.9 Obesity, unspecified; Z68.39 Body mass index [BMI] 39.0-39.9, adult; Z87.01 Personal history of pneumonia (recurrent); Z87.19 Personal history of other diseases of the digestive system; Z79.01 Long term (current) use of anticoagulants
CPT/HCPCS: 96374; 97116-GP; 97162-GP; G0378; G8978-GP-CI; G8978-GP-CK; G8979-GP-CI; G8980-GP-CI; J0171; J0696; J1170; J2250; J2405; J3010; P9016; Q9967